=== PATIENT | male | born 1985 | race Caucasian/White ===

== ENCOUNTER 2023-11-22 15:53 | Emergency (ER) | payer MEDICAID ==
[~2023-11-22] VITALS: Ht 177.8 cm; Wt 76.7 kg
[2023-11-22 16:00] VITALS: BP 133/88; PULSE 118; RESP 22; TEMP 97.9; O2SAT 98
[2023-11-22] MEDS: FLUORESCEIN OPTH STRIP 1 MG OP ONE (16:55)
[2023-11-22] MEDS: TETRACAINE HCL/PF 0.5% OPTH 4 ML BTL OP ONE (16:55)
[2023-11-22] MEDS: BACITRACIN OINT 500 UNITS/GM PKT TP ONE (17:12)
[2023-11-22 18:05] VITALS: BP 133/88; PULSE 118; RESP 22; TEMP 97.9; O2SAT 98
== END 2023-11-22 18:09 | disposition home or self-care (01) ==
LOC: MED 15:53
DX: S00.12XA Contusion of left eyelid and periocular area, initial encounter (principal); Y04.8XXA Assault by other bodily force, initial encounter; Y93.89 Activity, other specified; Y92.89 Other specified places as the place of occurrence of the external cause; Y99.8 Other external cause status
CPT/HCPCS: 70450; 70480; 99284